=== PATIENT | male | born 1985 | race Asian ===

== ENCOUNTER 2016-12-19 10:46 | Emergency (ER) | payer BC ==
[~2016-12-19] VITALS: Wt 66.5 kg
[~2016-12-19 10:46] MED LIST: CIPR500T4 PO; CODE118S PO; DIPH1TAB25 PO; HYDR30CR75 PR; IBUP-1542 PO; LOPE2CAP PO; MECL12.574 PO; MESA400C PO; METR500T PO; PRED10TA PO; PRED20TA PO
--- NOTE | 2016-12-19 11:28 | ERD ---
ER Documentation Chief Complaint Date/Time DATE: 12/19/16 TIME: 11:26 Chief Complaint r. ear muffled HPI This is a 31-year-old male presents to the emergency room for evaluation of right-sided ear pain. The patient states that he was using a Q-tip in his right ear last night and he noticed some blood on the Q-tip. He came to the ER for evaluation because he is having decreased hearing out of the right ear. Patient denies any other trauma to the area and denies any active bleeding from his ear ROS All systems reviewed and are negative except as per history of present illness. Medications Home Meds Active Scripts Loperamide Hcl* (Imodium*) 2 Mg Capsule, 2 MG PO .AFTER EA LOOSE BM Y for DIARRHEA, #20 TAB Prov:FLAVIA DELA CRUZ. WHEEL PRESS CLERK 12/21/15 Ciprofloxacin Hcl* (Ciprofloxacin Hcl*) 500 Mg Tablet, 500 MG PO BID for 14 Days , TAB Prov:FLAVIA DELA CRUZ. WHEEL PRESS CLERK 12/21/15 Metronidazole* (Flagyl*) 500 Mg Tablet, 500 MG PO TID for 14 Days, TAB Prov:FLAVIA DELA CRUZ. WHEEL PRESS CLERK 12/21/15 Ibuprofen* (Motrin*) 600 Mg Tab, 600 MG PO Q6, #30 TAB Prov:OSORIO OLSEN 07/02/15 Meclizine Hcl* (Antivert*) 12.5 Mg Tab, 12.5 MG PO Q6H Y for vertigo, #20 TAB Prov:OSORIO OLSEN 07/02/15 Prednisone* (Prednisone*) 20 Mg Tab, 20 MG PO BID for 7 Days, TAB Prov:KULDIP GIRON S. 06/06/14 Prednisone* (Prednisone*) 20 Mg Tab, 25 MG PO BID for 7 Days, TAB Prov:RAALLYNKULDIP S. 06/06/14 Metronidazole* (Flagyl*) 500 Mg Tablet, 500 MG PO TID for 7 Days, TAB Prov:ZOHRA GIRONEEP S. 06/06/14 Ciprofloxacin Hcl* (Ciprofloxacin Hcl*) 500 Mg Tablet, 500 MG PO BID for 7 Days , TAB Prov:SHAUNA GIRONKULDIP S. 06/06/14 Prednisone (Prednisone) 10 Mg Tab, 30 MG PO BID for 7 Days, TAB Prov:KULDIP GIRON S. 06/06/14 Mesalamine* (Delzicol*) 400 Mg Cap, 800 MG PO QID for 30 Days, 1 Refill Prov:KULDIP GIRON S. 06/06/14 Reported Medications Hydrocortisone Acetate* (Anusol-HC*) 30 Gm Cream.gm., 1 APPLIC TN BID Y for HEMORROID PAIN/ITCHING, TUB 06/01/14 Promethazine w/Codeine* (Phenergan w/Codeine* Syrup) 473 Ml Syrup, 5 ML PO Q6H Y for COUGH, ML 06/01/14 Diphenoxylate Hcl-Atropine* (Lomotil*) 1 Tab Tab, 1 TAB PO Q6H Y for DIARRHEA, TAB 06/01/14 Allergies Allergies: Coded Allergies: No Known Allergy (Unverified , 06/01/14) PMhx/Soc Medical and Surgical Hx: pt denies Medical Hx, pt denies Surgical Hx History of Surgery: No Anesthesia Reaction: No Hx Neurological Disorder: No Hx Respiratory Disorders: No Hx Cardiac Disorders: No Hx Psychiatric Problems: No Hx Miscellaneous Medical Probl: No Hx Alcohol Use: Yes (occasionaly) Hx Substance Use: No Hx Tobacco Use: No Physical Exam Vitals Vital Signs Date Time Temp Pulse Resp B/P Pulse Ox O2 Delivery O2 Flow Rate FiO2 12/19/16 10:48 97.0 95 20 140/95 100 Physical Exam INITIAL VITAL SIGNS: Reviewed by me GENERAL: The patient is well developed and appropriate for usual state of health in no apparent distress HEENT: Right tympanic membrane with partial rupture at 10 o'clock position, left tympanic membrane within normal limits, pupils equal, round, and reactive to light. EOMI. There is no scleral icterus. NECK: C-spine is soft and supple, there is no meningismus. There is no cervical lymphadenopathy. LUNGS: Clear to auscultation bilaterally. There are no rales, wheezes or rhonchi. HEART: Regular rate and rhythm, no murmurs, clicks, rubs or gallops. ABDOMEN: Soft, non-tender, non-distended. There are bowel sounds in all four quadrants. No rebound or guarding. EXTREMITIES: There is no peripheral cyanosis or edema. No focal swelling or erythema. NEUROLOGICAL: The patient moves all four extremities with 5/5 strength. Cranial nerves II - XII are intact. Normal gait. Alert and oriented SKIN: There is no apparent rash or petechiae. HEME/LYMPHATIC: There is no evidence of excessive bruising or lymphedema. PSYCHIATRIC: The patient does not appear anxious or depressed. Procedures/MDM This 31-year-old male presents to the ER for evaluation of right-sided ear pain. The patient did use a Q-tip last night and noticed some blood on it. When I evaluated this patient he did have small rupture of the tympanic membrane on the right. The patient will be discharged at this time with ciprofloxacin eardrops, and referral for ENT for outpatient follow-up. Departure Diagnosis: Primary Impression: Rupture of right tympanic membrane Additional Impression: Right ear pain Condition: Stable TEQUILA COOK DO Dec 19, 2016 11:28
[2016-12-19] MEDS ORDERED: CIPR7.5D4 RIGHT EAR (11:29)
== END 2016-12-19 12:56 | disposition home or self-care (01) ==
LOC: FTE 10:46
DX: H72.91 Unspecified perforation of tympanic membrane, right ear (principal)
CPT/HCPCS: 99283